=== PATIENT | male | born 1980 | race Caucasian/White ===

== ENCOUNTER → 2024-04-24 | Outpatient (CLI) | payer MEDICAID, SELFPAY ==
--- NOTE | 2024-04-24 14:59 | RAD_ITS ---
PROCEDURE: ELBOW MIN 3 VIEWS 04/24/2024 REASON FOR EXAM: ELBOW INJURY TECHNIQUE: Three views of the right elbow were obtained. FINDINGS: RIGHT ELBOW: Bones right: Unremarkable Joints right: Unremarkable Soft tissues right: Soft tissues are unremarkable. RAD/Elbow min 3 Views IMPRESSION: NEGATIVE right ELBOW SERIES Reading Location: [place] [id number]
== END | disposition home or self-care (01) ==
LOC: MTRAD 14:59
PROVIDERS: Referring Provider Physician Assistant; Visit Provider Physician Assistant
DX: S59.901A Unspecified injury of right elbow, initial encounter (principal)
CPT/HCPCS: 73080